=== PATIENT | female | born 1985 ===

== ENCOUNTER 2018-02-01 13:49 | Outpatient (CLI) | payer OTHER | END 2018-02-01 18:20 | disposition home or self-care (01) | LOC: NST 13:49 | DX: Z34.00 Encounter for supervision of normal first pregnancy, unspecified trimester (principal) ==

== ENCOUNTER 2018-02-08 14:03 | Outpatient (CLI) | payer OTHER ==
[2018-02-10] MEDS ORDERED: PRENATAL TABLE1 EAC2 PO (22:20)
[2018-02-10] MEDS ORDERED: ZANTAC150 MG PO (22:20)
== END 2018-02-08 18:00 | disposition home or self-care (01) ==
LOC: NST 14:03
DX: O48.0 Post-term pregnancy (principal); Z34.03 Encounter for supervision of normal first pregnancy, third trimester

== ENCOUNTER 2020-09-16 14:30 | Inpatient (IN) | payer OTHER ==
[~2020-09-16] VITALS: Ht 162.6 cm; Wt 81.6 kg
[~2020-09-16 14:30] MED LIST: PRENATAL TABLE1 EAC2 PO; ZANTAC150 MG PO
== END 2020-10-12 11:49 | disposition home or self-care (01) | DRG 807 ==
LOC: OB/GYN 10-04 14:30 → LDR 10-10 06:13 → SURG-SUITE 10-10 06:13
PROVIDERS: ADMIT Obstetrics & Gynecology; ATTEND Obstetrics & Gynecology
PROC: 10E0XZZ Delivery of Products of Conception, External Approach (ICD-10-PCS; principal; 2020-10-10)
PROC: 0KQM0ZZ Repair Perineum Muscle, Open Approach (ICD-10-PCS; 2020-10-10)
PROC: 10907ZC Drainage of Amniotic Fluid, Therapeutic from Products of Conception, Via Natural or Artificial Opening (ICD-10-PCS; 2020-10-10)
PROC: 4A1HXFZ Monitoring of Products of Conception, Cardiac Rhythm, External Approach (ICD-10-PCS; 2020-10-10)
DX: O70.1 Second degree perineal laceration during delivery (principal); Z37.0 Single live birth; Z3A.40 40 weeks gestation of pregnancy; Z20.828 Contact with and (suspected) exposure to other viral communicable diseases

== ENCOUNTER 2020-09-29 10:38 | Outpatient (CLI) | payer OTHER | END 2020-09-29 12:48 | disposition home or self-care (01) | LOC: NST 10:38 | PROVIDERS: ATTEND Obstetrics & Gynecology | DX: Z34.83 Encounter for supervision of other normal pregnancy, third trimester (principal) ==

== ENCOUNTER 2020-10-03 10:58 | Outpatient (CLI) | payer OTHER | END 2020-10-03 12:04 | disposition home or self-care (01) | LOC: NST 10:58 | PROVIDERS: ATTEND Obstetrics & Gynecology | DX: Z34.83 Encounter for supervision of other normal pregnancy, third trimester (principal) ==

== ENCOUNTER 2020-10-06 11:46 | Outpatient (CLI) | payer OTHER | END 2020-10-06 14:15 | disposition home or self-care (01) | LOC: NST 11:46 | PROVIDERS: ATTEND Obstetrics & Gynecology | DX: Z34.83 Encounter for supervision of other normal pregnancy, third trimester (principal) ==

== ENCOUNTER 2020-10-09 10:38 | Outpatient (CLI) | payer OTHER | END 2020-10-09 13:32 | disposition home or self-care (01) | LOC: NST 10:38 | PROVIDERS: ATTEND Obstetrics & Gynecology Maternal & Fetal Medicine | DX: Z34.83 Encounter for supervision of other normal pregnancy, third trimester (principal) ==